=== PATIENT | male | born 2000 | race Caucasian/White ===

== ENCOUNTER 2021-05-22 21:49 | Emergency (ER) | payer SELFPAY ==
[~2021-05-22] VITALS: Ht 182.9 cm; Wt 73.6 kg
[2021-05-22 22:05] VITALS: TEMP 98.4
[2021-05-23 00:17] VITALS: BP 124/70; PULSE 59
== END 2021-05-23 00:18 | disposition home or self-care (01) ==
LOC: COL.ER 21:49
DX: S23.3XXA Sprain of ligaments of thoracic spine, initial encounter (principal); F17.210 Nicotine dependence, cigarettes, uncomplicated; X50.0XXA Overexertion from strenuous movement or load, initial encounter